=== PATIENT | female | born 1965 | race Caucasian/White ===

== ENCOUNTER → 2016-07-17 | Outpatient (CLI) | payer BC ==
--- NOTE | 2016-07-18 07:37 | MAMMOGRAPHY REPORT ---
BILATERAL DIGITAL SCREENING MAMMOGRAM TOMOSYNTHESIS WITH CAD: 07/17/2016 CLINICAL HISTORY: Routine screening. Patient has no complaints. TECHNIQUE: Breast tomosynthesis in addition to standard 2D mammography was performed. Current study was also evaluated with a Computer Aided Detection (CAD) system. COMPARISON: Comparison is made to exams dated: 04/18/2015 mammogram, 03/13/2014 mammogram, 09/23/2012 mammogram, 09/02/2011 mammogram, and 07/01/2010 mammogram - [facility]. BREAST COMPOSITION: The tissue of both breasts is heterogeneously dense, which may obscure small ma sses. FINDINGS: There is a lobulated circumscribed 11 mm mass within the left upper outer quadrant which appears more prominent compared to prior exams. Recommend ultrasound for further evaluation. This may represent a cyst. The remainder of both breasts are stable compared to prior exams, without suspicious masses, calcifi cations, or areas of architectural distortion noted. Scattered bilateral benign-appearing calcifica tions are stable. IMPRESSION: ACR BI-RADS CATEGORY 0: INCOMPLETE EVALUATION: NEED ADDITIONAL IMAGING EVALUATION Left upper outer quadrant breast mass, for which additional imaging evaluation is recommended. The patient will be called to schedule an appointment. Approximately 10% of breast cancers are not detected with mammography. A negative mammographic repor t should not delay biopsy if a clinically suggestive mass is present. Citlaly Marr M.D. ah/:07/17/2016 16:53:14 [place] Caster: Jennifer Little RT(R)(M)(BD), [facility] letter sent: Addl Imaging 0 BI-RADS Code: ACR BI-RADS Category 0: Incomplete Evaluation: Need Additional Imaging Evaluation
== END | disposition home or self-care (01) ==
LOC: C.MAMM 15:07
PROVIDERS: ATTEND Family Medicine
DX: Z12.31 Encounter for screening mammogram for malignant neoplasm of breast (principal); N63 Unspecified lump in breast

== ENCOUNTER → 2016-08-15 | Outpatient (CLI) | payer BC ==
--- NOTE | 2016-08-20 11:59 | MAMMOGRAPHY REPORT ---
ULTRASOUND OF LEFT BREAST: 08/15/2016 CLINICAL HISTORY: Callback from screening mammogram for left upper outer quadrant circumscribed shay st mass. COMPARISON: Comparison is made to exams dated: 03/13/2014 mammogram, 04/18/2015 mammogram, 09/23/2012 mammogram, and 09/15/2011 mammogram - [facility]. TECHNIQUE: Real-time targeted ultrasound of the left breast was performed. FINDINGS: Real-time, high resolution targeted ultrasound was performed of the area of the mammographic mass. In the left breast at 1:00, 3 cm from the nipple, there is an oval circumscribed anechoic mass with multiple thin internal septations, measuring 1.2 x 0.4 x 0.6 cm. No internal solid component is see n. This corresponds with the mammographic mass and is consistent with a complicated cyst. A simila r-appearing cyst with a thin internal septation is seen in the left breast at 1:00, 2 cm from the ni pple, measuring 4 x 2 mm. Adjacent to this is an oval anechoic benign cyst which measures 9 x 3 mm. No suspicious solid masses are evident. IMPRESSION: ACR BI-RADS CATEGORY 2: BENIGN Benign 1.2 cm cyst in the left breast at 1:00, which corresponds with the circumscribed mammographic mass. There is no sonographic evidence of malignancy. A 1 year screening mammogram is recommended . The patient was verbally notified of the results. Citlaly Marr M.D. /:08/15/2016 11:04:32 Order Puller: Citlaly Marr MD, [facility] letter sent: Normal 1/2 BI-RADS Code: ACR BI-RADS Category 2: Benign
== END | disposition home or self-care (01) ==
LOC: C.MAMM 10:29
PROVIDERS: ATTEND Family Medicine
DX: N63 Unspecified lump in breast (principal)

== ENCOUNTER → 2016-12-10 | Outpatient (CLI) | payer BC ==
[~2016-12-10] MED LIST: GADAVIST IV PRN
--- NOTE | 2016-12-10 11:44 | DIAGNOSTIC IMAGING REPORT ---
CERVICAL SPINE MRI WITH AND WITHOUT CONTRAST HISTORY: DEMYELINATED DISORDER TECHNIQUE: Multiplanar multisequence MRI of the cervical spine was performed both before and after the use of intravenous contrast. COMPARISON STUDY: None. FINDINGS: No fracture or subluxation. Disc spaces are preserved. Prevertebral soft tissues and the C1-C2 interval are intact. A 4 mm cystic focus within the anterior aspect of the C6 vertebral body. No disc herniations. The cervical spinal cord is normal in course, caliber, and signal intensity. No abnormal enhancement. C2-C3: No significant central canal or neural foraminal narrowing. C3-C4: No significant central canal or neural foraminal narrowing. C4-C5: No significant central canal or neural foraminal narrowing. C5-C6: No significant central canal or neural foraminal narrowing. C6-C7: No significant central canal or neural foraminal narrowing. C7-T1: No significant central canal or neural foraminal narrowing. IMPRESSION: No significant abnormality within the cervical spine. Normal cervical spinal cord. Electronically signed by: Alon Lopez M.D. 12/10/2016 11:43 AM Dictated Date/Time: 12/10/2016 11:39 AM
--- NOTE | 2016-12-10 11:54 | DIAGNOSTIC IMAGING REPORT ---
Brain MRI WITH AND WITHOUT CONTRAST HISTORY: DEMYELINATED DISORDER TECHNIQUE: Multiplanar multisequence MRI of the brain was performed both before and after the intravenous administration of contrast. COMPARISON STUDY: Brain MRI 12/23/2010. 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 There are few punctate foci of T2 hyperintensity seen within the periventricular white matter of the frontal lobes and the right middle cerebellar peduncle. These remain unchanged. No new white matter foci identified. Paranasal sinuses are clear. Major vascular flow-voids at the skull base are well-maintained. Small amount of fluid within the right mastoid air cells, unchanged. The ventricles and sulci are within normal limits. There is no hematoma, midline shift, acute infarct. No abnormal enhancement. IMPRESSION: 1. 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 2. No change in a few scattered punctate foci of T2 hyperintensity within the periventricular white matter of the frontal lobes and right middle cerebellar peduncle. No abnormal enhancement. Electronically signed by: Alon Lopez M.D. 12/10/2016 11:52 AM Dictated Date/Time: 12/10/2016 11:43 AM
== END | disposition home or self-care (01) ==
LOC: C.MRIBC 09:00
PROVIDERS: ATTEND Physician Assistant
DX: G37.9 Demyelinating disease of central nervous system, unspecified (principal); E34.8 Other specified endocrine disorders

== ENCOUNTER 2017-11-02 06:33 | Emergency (ER) | payer BC ==
[~2017-11-02] VITALS: Ht 160 cm; Wt 59.9 kg
[2017-11-02 06:39] VITALS: TEMP 36.5; Ht 160 cm; Wt 59.9 kg
[2017-11-02] MEDS ORDERED: SUMA100T16 PO (06:56)
[2017-11-02] MEDS ORDERED: PROM25TA9 PO (06:56)
[2017-11-02] MEDS ORDERED: ESCI10TA17 PO (06:56)
[2017-11-02] MEDS ORDERED: VRPSR180 PO (06:56)
[2017-11-02] MEDS ORDERED: CETI10CA PO (06:56)
[2017-11-02] MEDS ORDERED: SODIUM CHLORIDE 0.9% 1000ML 1,000 ML IV STA (07:00)
[2017-11-02] MEDS ORDERED: KETOROLAC TROMETHAMINE 30 MG/ML VIAL IV STA (07:00)
[2017-11-02] MEDS ORDERED: METOCLOPRAMIDE HCL INJ 5 MG/ML 2 ML VIAL IV STA (07:00)
[2017-11-02] MEDS ORDERED: OPTIRAY 320 IV PRN (07:15)
[2017-11-02 07:33] LABS: BASO % 0.6 %; BASO ABS # 0.03 K/uL (0-0.2); EOS % 3.2 %; EOS ABS # 0.15 K/uL (0-0.5); HEMATOCRIT 36.7 % (37-47); HEMOGLOBIN 12.5 g/dL (12.0-16.0); LYMPH % 31.6 %; LYMPH ABS # 1.47 K/uL (1.2-3.4); MEAN CELL VOLUME 87.4 fL (80-100); MEAN CORPUSCULAR HEMOGLOBIN 29.8 pg (25-34); MEAN CORPUSCULAR HGB CONC 34.1 g/dl (32-36); MEAN PLATELET VOLUME 8.5 fL (7.4-10.4); MONO % 6.9 %; MONO ABS # 0.32 K/uL (0.11-0.59); NEUT % 57.7 %; NEUT ABS # 2.68 K/uL (1.4-6.5); PLATELET COUNT 266 K/uL (130-400); RED CELL DISTRIBUTION WIDTH CV 12.9 % (11.5-14.5); RED CELL DISTRIBUTION WIDTH SD 41.4 fL (36.4-46.3); WHITE BLOOD COUNT 4.65 K/uL (4.8-10.8)
[2017-11-02 07:50] LABS: ALBUMIN 3.7 gm/dl (3.4-5.0); CALCIUM 8.9 mg/dl (8.5-10.1); CREATININE 0.67 mg/dl (0.60-1.20)
--- NOTE | 2017-11-02 09:40 | DIAGNOSTIC IMAGING REPORT ---
ABD/PELVIS IV AND ORAL CONT CLINICAL HISTORY: 52 years-old Female presenting with Pt c/o LLQ abd pain, alternating constipation and diarrhea. TECHNIQUE: Multidetector CT of the abdomen and pelvis was performed after the administration of oral and intravenous contrast. IV contrast: 119 mL of Optiray 320. A dose lowering technique was used consistent with the principles of ALARA (as low as reasonably achievable). COMPARISON: None. CT DOSE (mGy.cm): The estimated cumulative dose is 289.57 mGy.cm. 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 Lung bases: Minimal basilar opacities, likely atelectasis. Punctate solid nodule in the right middle lobe (series 3 image 1). Normal heart size. No pericardial or pleural effusion. Liver: Normal morphology. No liver lesion. Patent hepatic vasculature. Biliary: No intrahepatic or extrahepatic biliary ductal dilatation. Gallbladder contains gallstones. Pancreas: Normal. Spleen: Normal. Adrenal glands: Normal. Kidneys and ureters: Punctate nonobstructing calculus at the lower pole of the right kidney. Cyst noted at the upper pole the left kidney. Parenchyma otherwise normal. No hydronephrosis. Ureters normal. Bladder: Normal. Pelvic organs: Uterus and ovaries normal. Bowel: Few diverticula noted in the proximal sigmoid colon. Oral contrast has progressed to the descending colon. Medialization of the cecum. No evidence of suspicious bowel wall thickening. The appendix is normal. No bowel obstruction. Mild wall thickening of the gastric antrum. No perigastric inflammatory change. Peritoneal cavity: No free fluid or intraperitoneal gas. Lymph nodes: No enlarged lymph nodes in the abdomen or pelvis. Vasculature: Atherosclerosis of the normal caliber abdominal aorta. IVC patent. Abdominal wall: Normal. Musculoskeletal: Normal. IMPRESSION: 1. Mild gastric antral wall thickening could suggest gastritis. No other evidence of acute intra-abdominal pathology. No evidence of bowel obstruction or significant constipation. No gross evidence of suspicious bowel wall thickening to suggest neoplasm. 2. Punctate nonobstructing right renal calculus. 3. Cholelithiasis. 4. Punctate solid right middle lobe pulmonary nodule. Electronically signed by: Tashi Acharya M.D. 11/02/2017 9:39 AM Dictated Date/Time: 11/02/2017 9:31 AM
[2017-11-02] MEDS ORDERED: DICY10CA55 PO (10:02)
[2017-11-02] MEDS ORDERED: FAMO40TA6 PO (10:02)
[2017-11-02 10:08] VITALS: BP 124/77; PULSE 63; O2SAT 97
--- NOTE | 2017-11-05 10:39 | EMERGENCY ROOM VISIT NOTE ---
History Report prepared by Megan: Raffy Nath Under the Supervision of: Dr. Sharif Brand M.D. First contact with patient: 06:44 Chief Complaint: ABDOMINAL PAIN Stated Complaint: BAD PAIN IN ABDOMEN,CONSTIPATION/DIARRHEA History of Present Illness The patient is a 52 year old female who presents to the Emergency Room with complaints of intermittent left-sided abdominal pain beginning two weeks ago. She also complains of alternating between constipation and diarrhea. She states that she is usually unable to defecate for 1-2 days at a time, followed by a day of diarrhea. The patient's pain is unchanged with eating, but is worsened with pressure. She notes that her pain is becoming more frequent. She denies any hip or back pain. The patient was seen by her PCP's office for her symptoms two days ago. She had blood-work which was normal. She delivered a stool sample yesterday and is scheduled for a CT in four days, but states that she cannot wait for four days due to her pain. The patient had a colonoscopy four years ago which was normal. She has no history of abdominal surgery or diverticulitis. She is seen by a neurologist for evaluation of "white spots" on her brain, which are thought to possibly be related to "mild, abnormal MS". Source of History: patient Onset: Two weeks ago Position: abdomen (left-side) Timing: intermittent Modifying Factors (Worsening): other (pressure to the area) Associated Symptoms: + diarrhea, No back pain Note: Positive: constipation. Negative: hip pain. Review of Systems See HPI for pertinent positives & negatives. A total of 10 systems reviewed and were otherwise negative. Past Medical & Surgical Medical Problems: (1) No Known Active Medical Problems Surgical Problems: (1) History of ear surgery Family History No pertinent family history stated. Social History Smoking Status: Never Smoker Housing Status: lives with significant other Current/Historical Medications Scheduled Cetirizine Hcl (Zyrtec Allergy), 10 MG PO DAILY Dicyclomine Hcl (Bentyl), 10 MG PO TID Escitalopram (Lexapro), 10 MG PO QPM Famotidine (Pepcid), 40 MG PO HS Verapamil HCl (Verapamil HCl ER), 180 MG PO BID Scheduled PRN Promethazine Hcl (Phenergan), 25 MG PO DAILY PRN for Nausea Sumatriptan Succinate (Imitrex), 100 MG PO DIRECTED PRN for Migraine Allergies Coded Allergies: Codeine (Verified Allergy, Intermediate, "SEVERE" GI UPSET, 11/02/17) Physical Exam Vital Signs Date Time Temp Pulse Resp B/P (MAP) Pulse Ox O2 Delivery O2 Flow Rate FiO2 11/02/17 10:08 63 20 124/77 97 11/02/17 08:15 63 18 135/83 98 Room Air 11/02/17 06:39 36.5 78 18 115/85 98 Room Air Physical Exam GENERAL: Awake, alert, well-appearing, in no acute distress HENT: Normocephalic, atraumatic. Oropharynx unremarkable. EYES: Normal conjunctiva. Sclera non-icteric. NECK: Supple. No nuchal rigidity. FROM. No JVD. RESPIRATORY: Clear to auscultation. CARDIAC: Regular rate, normal rhythm. Extremities warm and well perfused. Pulses equal. ABDOMEN: Soft, non-distended. Minimal LLQ tenderness to palpation. No rebound or guarding. No masses. RECTAL: Deferred. MUSCULOSKELETAL: Chest examination reveals no tenderness. The back is symmetrical on inspection without obvious abnormality. There is no CVA tenderness to palpation. No joint edema. LOWER EXTREMITIES: Calves are equal size bilaterally and non-tender. No edema. No discoloration. NEURO: Normal sensorium. No sensory or motor deficits noted. SKIN: No rash or jaundice noted. 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 Lung bases: Minimal basilar opacities, likely atelectasis. Punctate solid nodule in the right middle lobe (series 3 image 1). Normal heart size. No pericardial or pleural effusion. Liver: Normal morphology. No liver lesion. Patent hepatic vasculature. Biliary: No intrahepatic or extrahepatic biliary ductal dilatation. Gallbladder contains gallstones. Pancreas: Normal. Spleen: Normal. Adrenal glands: Normal. Kidneys and ureters: Punctate nonobstructing calculus at the lower pole of the right kidney. Cyst noted at the upper pole the left kidney. Parenchyma otherwise normal. No hydronephrosis. Ureters normal. Bladder: Normal. Pelvic organs: Uterus and ovaries normal. Bowel: Few diverticula noted in the proximal sigmoid colon. Oral contrast has progressed to the descending colon. Medialization of the cecum. No evidence of suspicious bowel wall thickening. The appendix is normal. No bowel obstruction. Mild wall thickening of the gastric antrum. No perigastric inflammatory change. Peritoneal cavity: No free fluid or intraperitoneal gas. Lymph nodes: No enlarged lymph nodes in the abdomen or pelvis. Vasculature: Atherosclerosis of the normal caliber abdominal aorta. IVC patent. Abdominal wall: Normal. Musculoskeletal: Normal. IMPRESSION: 1. Mild gastric antral wall thickening could suggest gastritis. No other evidence of acute intra-abdominal pathology. No evidence of bowel obstruction or significant constipation. No gross evidence of suspicious bowel wall thickening to suggest neoplasm. 2. Punctate nonobstructing right renal calculus. 3. Cholelithiasis. 4. Punctate solid right middle lobe pulmonary nodule. Electronically signed by: Tashi Acharya M.D. 11/02/2017 9:39 AM Laboratory Results 11/02/17 07:25 Red Blood Count 4.20, Mean Corpuscular Volume 87.4, Mean Corpuscular Hemoglobin 29.8, Mean Corpuscular Hemoglobin Concent 34.1, Mean Platelet Volume 8.5, Neutrophils (%) (Auto) 57.7, Lymphocytes (%) (Auto) 31.6, Monocytes (%) (Auto) 6.9, Eosinophils (%) (Auto) 3.2, Basophils (%) (Auto) 0.6, Neutrophils # (Auto) 2.68, Lymphocytes # (Auto) 1.47, Monocytes # (Auto) 0.32, Eosinophils # (Auto) 0.15, Basophils # (Auto) 0.03 11/02/17 07:25 Test 11/02/17 07:15 11/02/17 07:25 Urine Color YELLOW Urine Appearance CLOUDY (CLEAR) Urine pH 8.5 (4.5-7.5) Urine Specific [place] 1.021 (1.000-1.030) Urine Protein NEG (NEG) Urine Glucose (UA) NEG (NEG) Urine Ketones NEG (NEG) Urine Occult Blood NEG (NEG) Urine Nitrite NEG (NEG) Urine Bilirubin NEG (NEG) Urine Urobilinogen NEG (NEG) Urine Leukocyte Esterase NEG (NEG) Urine WBC (Auto) 1-5 /hpf (0-5) Urine RBC (Auto) 0-4 /hpf (0-4) Urine Hyaline Casts (Auto) 1-5 /lpf (0-5) Urine Epithelial Cells (Auto) >30 /lpf (0-5) Urine Bacteria (Auto) NEG (NEG) White Blood Count 4.65 K/uL (4.8-10.8) Red Blood Count 4.20 M/uL (4.2-5.4) Hemoglobin 12.5 g/dL (12.0-16.0) Hematocrit 36.7 % (37-47) Mean Corpuscular Volume 87.4 fL (80-100) Mean Corpuscular Hemoglobin 29.8 pg (25-34) Mean Corpuscular Hemoglobin Concent 34.1 g/dl (32-36) Platelet Count 266 K/uL (130-400) Mean Platelet Volume 8.5 fL (7.4-10.4) Neutrophils (%) (Auto) 57.7 % Lymphocytes (%) (Auto) 31.6 % Monocytes (%) (Auto) 6.9 % Eosinophils (%) (Auto) 3.2 % Basophils (%) (Auto) 0.6 % Neutrophils # (Auto) 2.68 K/uL (1.4-6.5) Lymphocytes # (Auto) 1.47 K/uL (1.2-3.4) Monocytes # (Auto) 0.32 K/uL (0.11-0.59) Eosinophils # (Auto) 0.15 K/uL (0-0.5) Basophils # (Auto) 0.03 K/uL (0-0.2) RDW Standard Deviation 41.4 fL (36.4-46.3) RDW Coefficient of Variation 12.9 % (11.5-14.5) Immature Granulocyte % (Auto) 0.0 % Immature Granulocyte # (Auto) 0.00 K/uL (0.00-0.02) Anion Gap 8.0 mmol/L (3-11) Est Creatinine Clear Calc Drug Dose 79.4 ml/min Estimated GFR () 115.5 Estimated GFR (Non- 99.7 BUN/Creatinine Ratio 15.1 (10-20) Calcium Level 8.9 mg/dl (8.5-10.1) Total Bilirubin 0.5 mg/dl (0.2-1) Direct Bilirubin 0.1 mg/dl (0-0.2) Aspartate Amino Transf (AST/SGOT) 12 U/L (15-37) Alanine Aminotransferase (ALT/SGPT) 18 U/L (12-78) Alkaline Phosphatase 91 U/L (45-117) Total Protein 7.0 gm/dl (6.4-8.2) Albumin 3.7 gm/dl (3.4-5.0) Lipase 101 U/L (73-393) Labs reviewed by ED physician. Medications Administered Medications (Trade) Dose Ordered Sig/Rufus Route Start Time Stop Time Status Last Admin Dose Admin Sodium Chloride 1,000 ml @ 999 mls/hr Q1H1M STAT IV 11/02/17 07:00 11/02/17 08:00 DC 11/02/17 07:22 999 MLS/HR Metoclopramide HCl (Reglan Inj) 10 mg NOW STAT IV 11/02/17 07:00 11/02/17 07:03 DC 11/02/17 07:22 10 MG Ketorolac Tromethamine (Toradol Inj) 30 mg NOW STAT IV 11/02/17 07:00 11/02/17 07:03 DC 11/02/17 07:23 30 MG ED Course 0653: Past medical records reviewed. The patient was evaluated in room B9. A complete history and physical examination was performed. 0700: Ordered Toradol Inj 30 mg IV, Reglan Inj 10 mg IV, Sodium Chloride 1000 ml @ 999 mls/hr. 0955: Upon reexamination the patient is resting comfortably. I discussed results and treatment plan with the patient. She verbalizes agreement and understanding. The patient is ready for discharge. Medical Decision Differential diagnosis: Etiologies such as appendicitis, diverticulitis, PUD, biliary pathology, UTI, pancreatitis, obstruction, mesenteric ischemia, aortic pathology, infections, inflammatory bowel disease, renal colic, as well as others were entertained. This is a 52-year-old female who presents the emergency department requesting a CAT scan of the abdomen pelvis that is scheduled for 4 days. The patient had serial abdominal examinations performed in the emergency department at no time to the patient exhibited surgical abdomen. CAT scan of the abdomen and pelvis does not show any acute findings. Patient was feeling better after normal saline bolus. I do feel she is well enough to be discharged home however strongly recommended the patient follow-up with her tree farmer specially if the symptoms are persisting. Patient and significant other were in agreement with the treatment plan. Medication Reconcilliation Current Medication List: was personally reviewed by vt Blood Pressure Screening Patient's blood pressure: Normal blood pressure Blood pressure disposition: Did not require urgent referral Impression Primary Impression: Abdominal pain Additional Impression: Gastritis Scribe Attestation The scribe's documentation has been prepared under my direction and personally reviewed by me in its entirety. I confirm that the note above accurately reflects all work, treatment, procedures, and medical decision making performed by me. Departure Information Dispostion Home / Self-Care Prescriptions Dicyclomine Hcl (BENTYL) 10 Mg Cap 10 MG PO TID for 10 Days, #30 CAP Prov: Sharif Brand MD 11/02/17 Famotidine (Pepcid) 40 Mg Tab 40 MG PO HS for 30 Days, #30 TAB Prov: Sharif Brand MD 11/02/17 Referrals Noemi Isbell D.O. (PCP) Forms Call Back Authorization, HOME CARE DOCUMENTATION FORM, IMPORTANT VISIT INFORMATION Patient Instructions Abdominal Pain, Abdominal Pain - [facility], Diet Clear Liquid Nm, My [facility] Additional Instructions Follow up with Dr Alcaraz's office In the meantime, clear liquid diet next 48 hours Take 5 ml Maalox before every meal and at bedtime Add Pepcid You have been examined and treated today on an emergency basis only. This is not a substitute for, or an effort to provide, complete comprehensive medical care. It is impossible to recognize and treat all injuries or illnesses in a single emergency department visit. It is therefore important that you follow up closely with Dr Isbell. Call as soon as possible for an appointment. Thank you for your time and consideration. I look forward to speaking with you again soon. Please don't hesitate to call us if you have any questions. Problem Qualifiers Primary Impression: Abdominal pain Abdominal location: left lower quadrant Qualified Codes: R10.32 - Left lower quadrant pain Additional Impression: Gastritis Gastritis type: unspecified gastritis Chronicity: unspecified Gastritis bleeding: presence of bleeding unspecified Qualified Codes: K29.70 - Gastritis, unspecified, without bleeding
== END 2017-11-02 10:09 | disposition home or self-care (01) ==
LOC: C.EDB 06:34
DX: R10.32 Left lower quadrant pain (principal); K29.70 Gastritis, unspecified, without bleeding; Z79.899 Other long term (current) drug therapy; Z88.5 Allergy status to narcotic agent